=== PATIENT | female | born 1955 ===

== ENCOUNTER 2022-04-17 09:24 | Outpatient (CLI) | payer OTHER | END 2022-04-17 09:25 | disposition home or self-care (01) | LOC: SONOGRAMA 09:24 | PROVIDERS: ATTEND Physical Medicine & Rehabilitation | DX: G56.01 Carpal tunnel syndrome, right upper limb (principal) ==

== ENCOUNTER 2024-11-30 12:23 | Outpatient (CLI) | payer OTHER | END 2024-11-30 12:30 | disposition home or self-care (01) | LOC: RAD 12:23 | PROVIDERS: ATTEND Family Medicine | DX: M25.561 Pain in right knee (principal) ==